=== PATIENT | male | born 1955 | race Caucasian/White ===

== ENCOUNTER 2016-05-10 18:37 | Observation (INO) | payer SELFPAY ==
--- NOTE | 2016-05-10 19:52 | C.PDOC ---
Time Seen by Provider: 05/10/16 19:29 Chief Complaint (Nursing): Psychiatric Evaluation Past Medical History Vital Signs: Last Vital Signs Temp 98.4 F 05/10/16 18:56 Pulse 89 05/10/16 18:56 Resp 15 05/10/16 18:56 BP 188/132 H 05/10/16 18:56 Pulse Ox 98 05/10/16 18:56 - Medical History PMH: HTN - Social History Hx Alcohol Use: No Hx Substance Use: No ED Course And Treatment O2 Sat by Pulse Oximetry: 98 Progress - Data Reviewed Data Reviewed: Lab, Diagnostic imaging, EKG, Old records
--- NOTE | 2016-05-10 19:57 | C.PDOC ---
History Of Present Illness 61 year old male with a history of diabetes and hypertension, presents to the ED with requests of medications. Pt information is limited due to poor historian and no prior visit to ED. Pt reports unknown history of required medications use. Pt denies any fever, chills, nausea, vomiting, diarrhea, SOB, dizziness, dysuria, or any other complaints. Time Seen by Provider: 05/10/16 19:29 Chief Complaint (Nursing): Psychiatric Evaluation History Per: Patient History/Exam Limitations: other (Limitation due to poor historian) Modifying Factor(s): None Severity: None Involuntary Hold By: None Past Medical History Reviewed: Historical Data, Nursing Documentation, Vital Signs Vital Signs: Last Vital Signs Temp 97.9 F 05/11/16 04:31 Pulse 62 05/11/16 04:31 Resp 16 05/11/16 04:31 BP 102/62 05/11/16 04:31 Pulse Ox 99 05/11/16 04:31 - Medical History PMH: HTN Family History: States: Unknown Family Hx - Social History Hx Alcohol Use: No Hx Substance Use: No Review Of Systems Review Of Systems: ROS cannot be obtained secondary to pt's inabilty to answer questions. (POOR HISTORIAN) Constitutional: Negative for: Fever, Chills Respiratory: Negative for: Shortness of Breath Gastrointestinal: Negative for: Nausea, Vomiting, Diarrhea Genitourinary: Negative for: Dysuria Neurological: Negative for: Dizziness Physical Exam - Physical Exam Appears: Non-toxic, No Acute Distress Skin: Warm, Dry Head: Atraumatic, Normacephalic Eye(s): bilateral: Normal Inspection Chest: Symmetrical Cardiovascular: Rhythm Regular, No Murmur Respiratory: Normal Breath Sounds, No Rales, No Rhonchi, No Wheezing Gastrointestinal/Abdominal: Soft, No Tenderness Neurological/Psych: Oriented x3, Normal Speech, Other (No focal deficit) ED Course And Treatment - Laboratory Results Result Diagrams: 05/10/16 20:41 05/10/16 20:41 ECG: Interpreted By Me ECG Rhythm: Sinus Rhythm ECG Interpretation: Normal Rate From EC O2 Sat by Pulse Oximetry: 98 (Room air) Pulse Ox Interpretation: Normal - Radiology CXR: Interpreted by Me CXR Interpretation: Yes: No Acute Disease Progress - Data Reviewed Data Reviewed: Lab, Diagnostic imaging, EKG, Old records Medical Decision Making Medical Decision Making: Plans: -CXR -EKG -Labs -Apresoline -IV Fluids -Reassess and disposition ED OBSERVATION Discharge: Yes Date of observation admission: 05/10/16 Time of observation admission: 19:00 - Observation admission statement Patient is being placed in observation because:: uncontroll htn, DM - Goals of Observation Goals of observation are:: MED CLEAR - Progress Note Progress Note: 05/10/16 23:45 BP IMPROVED COMPARED TO PRIOR. NO INDICATION OFR ADMISSION. DC IN A.M. FOR HOMELESS SENIOR LIVING EVAL 05/11/16 06:18 htn resolved. VSS NAD Disposition Counseled Patient/Family Regarding: Studies Performed, Diagnosis, Need For Followup, Rx Given - Disposition Disposition: HOME/ ROUTINE Disposition Time: 06:18 Condition: IMPROVED - Clinical Impression Clinical Impression: Hypertension, Homeless - Scribe Statement The provider has reviewed the documentation as recorded by the Scribe jose angel childers All medical record entries made by the Scribe were at my direction and personally dictated by me. I have reviewed the chart and agree that the record accurately reflects my personal performance of the history, physical exam, medical decision making, and the department course for this patient. I have also personally directed, reviewed, and agree with the discharge instructions and disposition.
[2016-05-10 20:44] LABS: BASO # 0.1 K/uL (0.0-0.2); BASO % 0.9 % (0.0-2.0); EOS # 0.1 K/uL (0.0-0.7); EOS % 1.4 % (0.0-4.0); HEMATOCRIT 42.1 % (35.0-51.0); LYMPH # 1.9 K/uL (1.0-4.3); MEAN CORPUSCULAR HEMOGLOBIN 28.2 pg (27.0-31.0); MEAN CORPUSCULAR HGB CONC 32.5 g/dL (33.0-37.0); MEAN PLATELET VOLUME 7.9 fL (7.2-11.7); MONO # 0.5 K/uL (0.0-0.8); MONO % 5.8 % (0.0-10.0); RED CELL DISTRIBUTION WIDTH 14.5 % (11.5-14.5); WHITE BLOOD COUNT 8.4 K/uL (4.8-10.8)
[2016-05-10 20:51] LABS: RBC URINE 2 /hpf (0-3); URINE BACTERIA RARE (<OCC); URINE BILIRUBIN NEGATIVE (NEGATIVE); URINE BLOOD NEGATIVE (NEGATIVE); URINE COLOR Yellow (YELLOW); URINE GLUCOSE (UA) NORMAL (Normal); URINE KETONE NEGATIVE (NEGATIVE); URINE LEUKOCYTE ESTERASE NEG Leu/uL (Negative); URINE PROTEIN NEGATIVE (NEGATIVE); URINE UROBILINOGEN NORMAL mg/dL (0.2-1.0); WBC URINE 1 /hpf (0-5)
[2016-05-10 20:55] LABS: CHLORIDE 98 mmol/L (98-107); POTASSIUM 4.4 mmol/L (3.6-5.2); SODIUM 138 mmol/L (132-148)
[2016-05-10 20:58] LABS: ALB/GLOB RATIO 1.3 (1.0-2.1); ALKALINE PHOSPHATASE 54 U/L (38-126); AST/SGOT 21 U/L (17-59); BILIRUBIN,TOTAL 0.5 mg/dL (0.2-1.3); BLOOD UREA NITROGEN 14 mg/dL (9-20); CALCIUM 9.1 mg/dl (8.6-10.4); CARBON DIOXIDE 26 mmol/L (22-30); GFR AFRICAN-AMERICAN > 60; GLUCOSE,RANDOM 104 mg/dL (75-110); TOTAL PROTEIN 7.9 g/dL (6.3-8.3)
[2016-05-10 20:59] LABS: ALT/SGPT 9 U/L (21-72)
[2016-05-11 04:32] VITALS: BP 102/62
[2016-05-11 06:29] VITALS: PULSE 89; RESP 18; TEMP 98.5; O2SAT 99
--- NOTE | 2016-05-11 10:38 | RAD ---
HISTORY: HTN COMPARISON: None available. TECHNIQUE: Chest PA and lateral FINDINGS: LUNGS: No focal consolidation. Please note that chest x-ray has limited sensitivity for the detection of pulmonary masses. PLEURA: No significant pleural effusion identified. No definite pneumothorax . CARDIOVASCULAR: Heart size appears within normal limits. Atherosclerotic calcifications of the aorta. OSSEOUS STRUCTURES: Degenerative changes of the spine and shoulders. VISUALIZED UPPER ABDOMEN: Elevation of the right hemidiaphragm. OTHER FINDINGS: None. IMPRESSION: No focal consolidation, significant pleural effusion, or definite pneumothorax identified.
--- NOTE | 2016-05-14 08:58 | CARD ---
APPROVED REPORT EKG Measurement Heart [id number] <Conclusion> Normal sinus rhythm Normal ECG
== END 2016-05-11 06:18 | disposition home or self-care (01) ==
LOC: C.ER 18:37 → C.9OBSV 19:00
PROVIDERS: ADMIT Emergency Medicine; ATTEND Emergency Medicine
DX: I10 Essential (primary) hypertension (principal); E11.9 Type 2 diabetes mellitus without complications; Z59.0 Homelessness; Z79.4 Long term (current) use of insulin
CPT/HCPCS: 36415; 71020; 80053; 81001; 85025; 93005; G0378; J0360